=== PATIENT | male | born 1955 | race Caucasian/White ===

== ENCOUNTER 2017-02-17 10:47 | Outpatient (CLI) | payer OTHER ==
[~2017-02-17 10:47] MED LIST: ALEVE220 MG PO; ASPIRIN EC325 MG PO; COLACE EQUIVALENT PO; CPMMACHINE; ENTERIC COATED325 M1 PO; FERROUS SULFAT324 M1 PO; HYDROXYZINE PAM25 MG PO; OXYCODONE/ACETA1 TA1 PO; PERCOCET1 TA1 PO; VITAMIN C500 M1 PO; ZOLPIDEM TARTRAT5 MG PO
== END 2017-02-17 23:00 ==
LOC: LAB SRH 10:47
DX: M25.561 Pain in right knee (principal)
CPT/HCPCS: 90074; 91065; 92576; 95059; 95150